=== PATIENT | male | born 1935 | race Caucasian/White ===

== ENCOUNTER 2017-08-11 11:57 | Day surgery (SDC) | payer MEDICARE, OTHER ==
[2017-08-11 12:58] VITALS: BP 126/74
== END 2017-08-11 11:58 | disposition home or self-care (01) ==
LOC: AMB 11:57
PROVIDERS: ATTEND Ophthalmology
PROC: 085K3ZZ Destruction of Left Lens, Percutaneous Approach (ICD-10-PCS; principal; 2017-08-11 12:00)
DX: H26.492 Other secondary cataract, left eye (principal); I10 Essential (primary) hypertension; J44.9 Chronic obstructive pulmonary disease, unspecified; Z87.891 Personal history of nicotine dependence